=== PATIENT | female | born 1985 ===

== ENCOUNTER 2017-12-19 10:09 | Emergency (ER) | payer OTHER ==
--- NOTE | 2017-12-19 11:52 | ED PDOC ---
HPI: Abdomen Time Seen by Provider: 12/19/17 10:59 Chief Complaint (Nursing): Abdominal Pain Chief Complaint (Provider): Abdominal Pain History Per: Patient History/Exam Limitations: no limitations Onset/Duration Of Symptoms: Intermittent Episodes, Worse Since (x2 weeks) Current Symptoms Are (Timing): Still Present Additional Complaint(s): 32 year old female with medical history of hyperlipidemia, presents to the emergency department with a complaint of upper and lower abdominal pain associated with lower back pain ongoing intermittently for a "long time". Patient reported both pain are chronic issues but had worsen in the last 2 weeks. She denied any fever, chills, vomiting, diarrhea, nausea or taking any medication for relief. PMD: Tino Baez MD Past Medical History Reviewed: Historical Data, Nursing Documentation, Vital Signs Vital Signs: Last Vital Signs Temp 98.2 F 12/19/17 14:58 Pulse 61 12/19/17 14:58 Resp 18 12/19/17 14:58 BP 100/64 12/19/17 14:58 Pulse Ox 99 12/19/17 14:58 - Medical History PMH: Hyperlipidemia Denies: Chronic Kidney Disease - Surgical History Surgical History: - Family History Family History: States: Unknown Family Hx - Social History Current smoker - smoking cessation education provided: No Ex-Smoker (has not smoked in the last 12 months): No Alcohol: None Drugs: Denies - Immunization History Hx Tetanus Toxoid Vaccination: No Hx Influenza Vaccination: No Hx Pneumococcal Vaccination: No - Home Medications Home Medications: Ambulatory Orders Medication Instructions Recorded Amoxicillin 1 cap PO BID 01/16/16 oxyCODONE/Acetaminophen [Percocet 1 tab PO QID PRN #12 tab 01/16/16 5/325 mg Tab] metroNIDAZOLE [Flagyl] 500 mg PO BID #14 tab 03/02/16 Famotidine [Pepcid] 20 mg PO DAILY #14 tab 12/19/17 Nitrofurantoin Macrocrystals 100 mg PO BID #14 cap 12/19/17 [Macrobid] traMADol [Ultram] 50 mg PO TID PRN #15 tab 12/19/17 - Allergies Allergies/Adverse Reactions: Allergies Allergy/AdvReac Type Severity Reaction Status Date / Time No Known Allergies Allergy Verified 12/19/17 10:46 Review of Systems ROS Statement: Except As Marked, All Systems Reviewed And Found Negative Constitutional: Negative for: Fever, Chills Gastrointestinal: Positive for: Abdominal Pain (upper and lower). Negative for : Nausea, Vomiting, Diarrhea Musculoskeletal: Positive for: Back Pain (lower) Physical Exam - Reviewed Nursing Documentation Reviewed: Yes Vital Signs Reviewed: Yes - Physical Exam Appears: Positive for: Well, Non-toxic, No Acute Distress Head Exam: Positive for: ATRAUMATIC, NORMAL INSPECTION, NORMOCEPHALIC Skin: Positive for: Normal Color Eye Exam: Positive for: EOMI, Normal appearance, PERRL ENT: Positive for: Normal ENT Inspection, Pharynx Is (within normal limits), TM Is/Are (clear bilaterally). Negative for: Pharyngeal Erythema, Tonsillar Exudate Neck: Positive for: Normal, Supple Cardiovascular/Chest: Positive for: Regular Rate, Rhythm, Chest Non Tender Respiratory: Positive for: Normal Breath Sounds. Negative for: Decreased Breath Sounds, Wheezing, Respiratory Distress Gastrointestinal/Abdominal: Positive for: Soft, Tenderness (suprapubic; epigastric) Back: Positive for: Vertebral Tenderness (paraspinal on palpation). Negative for: L CVA Tenderness, R CVA Tenderness Extremity: Positive for: Normal ROM (upper/lower) Neurologic/Psych: Positive for: Alert (x3), Oriented - Laboratory Results Result Diagrams: 12/19/17 12:00 12/19/17 12:00 - ECG O2 Sat by Pulse Oximetry: 100 (RA) Pulse Ox Interpretation: Normal Medical Decision Making Medical Decision Making: Initial Impression: Chronic abdominal and back pain Differential Diagnosis: Gastritis; Fibroids; UTI Initial Plan: * BMP * Lipase * Urine * Urine dipstick * CBC * Pepcid 20mg IVP * Toradol 30mg IVP Time: 1449 --Labs: no significant abnormality. --Negative for . --Upon provider reevaluation, patient is feeling better, medically stable and requires no further treatment in the ED at this time. Patient will be discharged home with Rx for Pepcid 20mg, Macrobid 100mg and Ultram 50mg. Counseling was provided and all questions were answered regarding diagnosis and need for follow up with [facility] in 2-3 days. There is agreement to discharge plan. Return if symptoms persist or worsen. Clinical Impression: Back pain; Abdominal pain; Pelvis pain; Dysuria Scribe Attestation: Documented by Ciera Austin, acting as a scribe for Nhung Arroyo MD. Provider Scribe Attestation: All medical record entries made by the Scribe were at my direction and personally dictated by me. I have reviewed the chart and agree that the record accurately reflects my personal performance of the history, physical exam, medical decision making, and the department course for this patient. I have also personally directed, reviewed, and agree with the discharge instructions and disposition. Disposition - Clinical Impression Clinical Impression: Abdominal pain, Pelvic pain, Back pain, Dysuria - Patient ED Disposition Is Patient to be Admitted: No Doctor Will See Patient In The: Office Counseled Patient/Family Regarding: Studies Performed, Diagnosis - Disposition Referrals: [facility] [Outside] Disposition: Routine/Home Disposition Time: 14:49 Condition: GOOD Additional Instructions: Take your medications as instructed. Follow up with your PCP 2-3 days. Return for worsening. Prescriptions: Famotidine [Pepcid] 20 mg PO DAILY #14 tab Nitrofurantoin Macrocrystals [Macrobid] 100 mg PO BID #14 cap traMADol [Ultram] 50 mg PO TID PRN #15 tab PRN Reason: Pain, Severe (8-10) Instructions: Chronic Pelvic Pain in Women, Low Back Pain (DC), Urinary Tract Infection, Adult (DC), Chronic Pelvic Pain (DC), Stomach Ache and Stomach Upset Print Language: DJIBOUTIAN
[2017-12-19 12:19] LABS: BASO % 0.3 % (0.0-2.0); EOS # 0.1 K/uL (0.0-0.7); EOS % 1.1 % (0.0-4.0); HEMOGLOBIN 14.3 g/dL (12.0-16.0); LYMPH # 2.4 K/uL (1.0-4.3); MEAN CORPUSCULAR HEMOGLOBIN 31.3 pg (27.0-31.0); MEAN CORPUSCULAR HGB CONC 34.4 g/dL (33.0-37.0); MEAN PLATELET VOLUME 8.4 fl (7.2-11.7); MONO # 0.4 K/uL (0.0-0.8); MONO % 6.1 % (0.0-10.0); NEUT # 3.3 K/uL (1.8-7.0); NEUT % 53.5 % (50.0-75.0); NRBC % 0.1 % (0.0-0.0); RBC 4.56 Mil/uL (3.80-5.20); WHITE BLOOD COUNT 6.2 K/uL (4.8-10.8)
[2017-12-19 12:21] LABS: BLOOD UREA NITROGEN 8 mg/dl (7-17); CALCIUM 9.5 mg/dL (8.4-10.2); GFR AFRICAN-AMERICAN > 60; GFR NON-AFRICAN AMERICAN > 60; LIPASE 63 U/L (23-300)
[2017-12-19 14:59] VITALS: BP 100/64; PULSE 61; RESP 18; TEMP 98.2
[2017-12-19 15:20] VITALS: O2SAT 100
== END 2017-12-19 15:15 | disposition home or self-care (01) ==
LOC: H.ER 10:09
DX: R10.2 Pelvic and perineal pain (principal); R30.0 Dysuria; E78.5 Hyperlipidemia, unspecified
CPT/HCPCS: 80048; 81025; 83690; 85025; 96374; 96375; 99285; J1885

== ENCOUNTER 2018-02-04 18:43 | Emergency (ER) | payer SELFPAY ==
[2018-02-04 18:57] VITALS: PULSE 72; RESP 18; TEMP 98.1; O2SAT 100
[2018-02-04] MEDS ORDERED: Dexamethasone 4 mg/1 ml IM STA (19:25)
--- NOTE | 2018-02-04 19:29 | ED PDOC ---
HPI: CCC, URI, Sore Throat Time Seen by Provider: 02/04/18 19:08 Chief Complaint (Nursing): ENT Problem Chief Complaint (Provider): Throat swelling and ear pain History Per: Patient History/Exam Limitations: language barrier (translated by ba) Ear Symptoms: Bilateral: Ear Pain Additional Complaint(s): 32 year old female with sore throat and bilateral ear pain for 5 days with no fever or chills and no associated cough. Patient reports she took 2 amoxicillin tabs and Motrin for her symptoms but this did not help. Patient is tolerating liquids and solids but has pain when swallowing. No associated nausea and vomiting. PMD: [facility] Past Medical History Reviewed: Historical Data, Nursing Documentation, Vital Signs Vital Signs: Last Vital Signs Temp 98.1 F 02/04/18 18:54 Pulse 72 02/04/18 18:54 Resp 18 02/04/18 18:54 BP Pulse Ox 100 02/04/18 19:39 - Medical History PMH: Hyperlipidemia - Surgical History Surgical History: (x 2) - Family History Family History: States: No Known Family Hx - Living Arrangements Living Arrangements: With Family - Social History Current smoker - smoking cessation education provided: No Alcohol: None Drugs: Denies - Home Medications Home Medications: Ambulatory Orders Medication Instructions Recorded Amoxicillin 1 cap PO BID 01/16/16 oxyCODONE/Acetaminophen [Percocet 1 tab PO QID PRN #12 tab 01/16/16 5/325 mg Tab] metroNIDAZOLE [Flagyl] 500 mg PO BID #14 tab 03/02/16 Famotidine [Pepcid] 20 mg PO DAILY #14 tab 12/19/17 Nitrofurantoin Macrocrystals 100 mg PO BID #14 cap 12/19/17 [Macrobid] traMADol [Ultram] 50 mg PO TID PRN #15 tab 12/19/17 Amoxicillin/Clavulanate [Augmentin 1 tab PO BID #14 tab 02/04/18 875 MG-125 MG] Ibuprofen [Motrin Tab] 800 mg PO Q8 PRN #20 tab 02/04/18 - Allergies Allergies/Adverse Reactions: Allergies Allergy/AdvReac Type Severity Reaction Status Date / Time No Known Allergies Allergy Verified 02/04/18 18:54 Review of Systems ROS Statement: Except As Marked, All Systems Reviewed And Found Negative Constitutional: Negative for: Fever, Chills ENT: Positive for: Ear Pain (bilateral), Throat Pain, Throat Swelling Respiratory: Negative for: Cough Gastrointestinal: Negative for: Nausea, Vomiting Neurological: Negative for: Headache, Dizziness Physical Exam - Reviewed Nursing Documentation Reviewed: Yes Vital Signs Reviewed: Yes - Physical Exam Appears: Positive for: Well, Non-toxic Head Exam: Positive for: ATRAUMATIC, NORMOCEPHALIC Skin: Positive for: Normal Color. Negative for: Rash Eye Exam: Positive for: Normal appearance ENT: Positive for: TM Is/Are (TM's normal bilaterally, mild erythema with no edema noted to auditory canals bilaterally), Pharyngeal Erythema, Tonsillar Exudate, Tonsillar Swelling, Other (uvula midline) Cardiovascular/Chest: Positive for: Regular Rate, Rhythm Respiratory: Positive for: Normal Breath Sounds. Negative for: Wheezing, Respiratory Distress Neurologic/Psych: Positive for: Alert, Oriented - Laboratory Results Urine POC: Negative - ECG O2 Sat by Pulse Oximetry: 100 (RA) Pulse Ox Interpretation: Normal Medical Decision Making Medical Decision Making: Time: 1907 Impression: Tonsillitis Initial Plan: --Decadron Inj 8 mg IM --Motrin Tab 600 mg PO --Throat Culture Patient given prescriptions for Motrin and Augmentin. Patient was advised to drink plenty of fluids and follow up with clinic in 2-3 days. Scribe Attestation: Documented by Adriana Barros, acting as a scribe for Sarahy Yu PA-C Provider Scribe Attestation: All medical record entries made by the Scribe were at my direction and personally dictated by me. I have reviewed the chart and agree that the record accurately reflects my personal performance of the history, physical exam, medical decision making, and the department course for this patient. I have also personally directed, reviewed, and agree with the discharge instructions and disposition. Disposition - Clinical Impression Clinical Impression: Tonsillitis - Patient ED Disposition Is Patient to be Admitted: No Counseled Patient/Family Regarding: Studies Performed, Diagnosis, Need For Followup, Rx Given - Disposition Referrals: [facility] [Outside] Disposition: Routine/Home Disposition Time: 19:53 Condition: STABLE Additional Instructions: Take rx meds as directed. Drink plenty of fluids. Follow up with clinic in 2- 3 days. Prescriptions: Amoxicillin/Clavulanate [Augmentin 875 MG-125 MG] 1 tab PO BID #14 tab Ibuprofen [Motrin Tab] 800 mg PO Q8 PRN #20 tab PRN Reason: Pain, Moderate (4-7) Instructions: Sore Throat in Adults Forms: [facility] (Slovenian) Print Language: EGYPTIAN
== END 2018-02-04 20:22 | disposition home or self-care (01) ==
LOC: H.ER 18:43
DX: J03.90 Acute tonsillitis, unspecified (principal); E78.5 Hyperlipidemia, unspecified
CPT/HCPCS: 81025; 87070; 96372; 99283; J1100

== ENCOUNTER 2018-03-22 11:25 | Day surgery (SDC) | payer SELFPAY ==
[2018-03-22 12:25] VITALS: RESP 18
[2018-03-22] MEDS ORDERED: Bupivacaine HCl 0.25% PF (30 ml) Inj ONE (13:11)
[2018-03-22] MEDS ORDERED: ceFAZolin IV 2 gm in Dextrose 2 GM/50 ML BAG IVPB ONE (13:11)
[2018-03-22] MEDS ORDERED: Lidocaine 1% Inj (20ml) ONE (13:12)
[2018-03-22] MEDS ORDERED: Succinylcholine 200 mg/10 ml Inj IV ONE (13:18)
[2018-03-22] MEDS ORDERED: Midazolam 2 MG/2 ML VIAL ONE (13:18)
[2018-03-22] MEDS ORDERED: Propofol 10 mg/ml Inj (20 ML) ONE (13:18)
[2018-03-22] MEDS ORDERED: Rocuronium 10 mg/ml (5 ml) ONE (13:18)
[2018-03-22] MEDS ORDERED: Lactated Ringer's 1,000 ML IV ONE (14:00)
--- NOTE | 2018-03-22 14:59 | PCM.SURG1 ---
Surgeon's Initial Post Op Note - Surgeon's Notes Surgeon: Dr. Grier Cheese Processor: Dr. Baldwin PGY4; Dr. Valdes PGY3 Type of Anesthesia: General Endo Anesthesia Administered By: Sana Pre-Operative Diagnosis: Symptomatic Cholelithiasis Operative Findings: same Post-Operative Diagnosis: same Operation Performed: Laparoscopic Cholecystectomy Specimen/Specimens Removed: Gallbladder Estimated Blood Loss: EBL {In ML}: 5 Blood Products Given: N/A Drains Used: No Drains Post-Op Condition: Good Date of Surgery/Procedure: 03/22/18 Time of Surgery/Procedure: 15:00
--- NOTE | 2018-03-22 15:00 | CP.SDSHP ---
Same Day Surgery H & P - History Proposed Procedure: Laparoscopic cholecystectomy Pre-Op Diagnosis: symptomatic cholelithiasis - Previous Medical/Surgical History Cardiac: Other (HLD) Previous Surgical History: - Allergies Allergies: Allergies No Known Allergies Allergy (Verified 02/04/18 18:54) - Physical Exam General Appearance: NAD Vital Signs: Vital Signs 03/22/18 12:24 Temperature 97.7 F Pulse Rate 62 Respiratory 18 Rate Blood Pressure 105/58 L O2 Sat by Pulse 98 Oximetry Mental Status: Alert & Oriented x3 Neuro: WNL Heart: WNL Lungs: WNL GI: WNL - Impression Impression: 32 y/o F w/ symptomatic cholelithiasis Pt. Evaluated Today:Candidate for Anesthesia & Procedure: Yes Short Stay Discharge - Short Stay Discharge Admitting Diagnosis/Reason for Visit: K80.20 Disposition: HOME/ ROUTINE Referrals: Madison Morales MD [Primary Care Provider] - Manisha Grier MD [Staff Provider] - [facility] [Outside] Follow-up: follow up w/ Dr. Grier in clinic in 7-10 days please call to make an appointment. Instructions: Cholecystectomy, Laparoscopic Surgery Additional Instructions (Diet, Activity): advance diet as tolerated pt may experience diarrhea with fatty foods for first 1-2months which will improve Pt may shower tomorrow however do not scrub at incisions Do not soak incisions. No pools, tubs, baths, swimming remove and change outer bandaid POD#2, and as needed Leave white steristrips in place, they will fall off on their own No heavy lifting (more than 10lbs) for 3wks Take medication as prescribed Pt may take OTC pain meds PRN Call Dr. Grier/return to the ED if fever >100.4, pain, redness, drainage from incisions or suture rupture
[2018-03-22] MEDS ORDERED: HYDROmorphone 0.5 mg/0.5 ml ISec IVP PRN (15:05)
[2018-03-22] MEDS ORDERED: Lactated Ringer's 1,000 ML IV SCH (15:15)
[2018-03-22] MEDS ORDERED: Oxycodone/Acetaminophen 5/325 mg Tab PO PRN (15:21)
[2018-03-22] MEDS ORDERED: Oxycodone/Acetaminophen 5/325 mg Tab PO ONE (18:30)
[2018-03-22 18:36] VITALS: TEMP 98.2
[2018-03-22 19:27] VITALS: BP 124/69; PULSE 77; O2SAT 98
--- NOTE | 2018-03-24 08:25 | OP ---
PROCEDURE DATE: 03/22/18 PREOPERATIVE DIAGNOSIS: Symptomatic cholelithiasis. POSTOPERATIVE DIAGNOSIS: Symptomatic cholelithiasis. SURGEON: Manisha Shaffer MD DRAFTER DETAIL: Shelly De Los Santos DO; Payal Monroe DO PROCEDURE: Laparoscopic cholecystectomy. INDICATIONS: This is a 32-year-old female who was experiencing right upper quadrant abdominal pain. On workup was found to have cholelithiasis. Laparoscopic cholecystectomy was elected. DESCRIPTION OF PROCEDURE: The patient was placed on the operating table in the supine position. General anesthesia was induced. A time-out was completed verifying correct patient, procedure, site, positioning, and special equipment prior to the procedure. A nasogastric tube was placed. The abdomen was prepped and draped in the usual sterile fashion. An incision was made in a natural skin line just below the umbilicus. The fascia was elevated and the Veress needle was inserted. Proper position was confirmed by aspiration and saline meniscus test. The abdomen was then insufflated with carbon dioxide to a pressure of 15 mmHg. The patient tolerated the insufflation well. The laparoscope was inserted and the abdomen inspected. Additional trocars were then inserted in the following locations, 10-mm trocar in the right epigastrium and two 5-mm trocars along the right costal margin. The abdomen was inspected and no abnormalities were found. The table was placed in the reverse Trendelenburg position with the right side up. The dome of the gallbladder was grasped with an atraumatic grasper, passed to the lateral port and retracted over the dome of the liver. The infundibulum was then also grasped with an atraumatic grasper to the midclavicular port and retracted towards the right lower quadrant. This maneuver exposed Calot's triangle. The peritoneum overlying the gallbladder infundibulum was then incised and a cystic duct and cystic artery were identified and circumferentially dissected until the critical view was obtained. We were then able to see the cystic duct, and cystic artery with a view of the liver behind it. The cystic duct and cystic artery were then triply clipped and divided close to the gallbladder. The gallbladder was then dissected from its peritoneal attachment using electrocautery. Hemostasis was achieved and the gallbladder and contained stones were removed using an endoscopic retrieval bag placed through the subxiphoid port. The gallbladder was passed off the table as a specimen. The gallbladder fossa was then copiously irrigated with saline. Hemostasis was achieved. There was no evidence of bleeding from the gallbladder fossa or cystic artery. No leakage of bile, from the cystic duct stump. Secondary trocars were then removed. The laparoscope was withdrawn and umbilical trocar was removed. The abdomen was allowed to collapse. The fascia of the 10-mm trocar site was closed with [id number] 0-Vicryl suture. The skin was then closed with subcuticular sutures of 4-0 Monocryl and Dermabond was applied. The nasogastric tube was removed. The patient tolerated the procedure well. The patient was extubated and taken to the postanesthesia care unit in stable condition. Shelly Baldwin DO Manisha Grier M.D. SYLVIE
== END 2018-03-22 19:43 | disposition home or self-care (01) ==
LOC: H.OPSURG 11:25
PROVIDERS: ATTEND Specialist
DX: K80.20 Calculus of gallbladder without cholecystitis without obstruction (principal); M54.9 Dorsalgia, unspecified; E78.5 Hyperlipidemia, unspecified
CPT/HCPCS: 47562; 88304; J0330; J0690; J1170; J2001; J2250; J2405; J2704; J3010; J7030; J7120

== ENCOUNTER 2018-07-13 17:45 | Emergency (ER) | payer SELFPAY ==
--- NOTE | 2018-07-13 19:15 | ED PDOC ---
HPI: Back Time Seen by Provider: 07/13/18 19:02 Chief Complaint (Nursing): Back Pain Chief Complaint (Provider): Abdominal pain History Per: Patient History/Exam Limitations: no limitations Onset/Duration Of Symptoms: Days (x2) Additional Complaint(s): Patient is a 32 y/o female with history of fibroid uterus who presents to the ED complaining of lower abdominal pelvic pain x2 days with pain radiating to her back. Patient also complains of dysuria and constipation. She denies fever, vomiting, or bloody stool. Past Medical History Vital Signs: Last Vital Signs Temp 98.2 F 07/13/18 18:09 Pulse 65 07/13/18 18:09 Resp 18 07/13/18 18:09 BP 114/73 07/13/18 18:09 Pulse Ox 99 07/13/18 18:09 - Medical History PMH: Gastritis, Hypercholesterolemia, Hyperlipidemia Denies: Chronic Kidney Disease Other PMH: Fibroid uterus - Surgical History Surgical History: Cholecystectomy, (x 2) - Family History Family History: States: Unknown Family Hx - Immunization History Hx Tetanus Toxoid Vaccination: No Hx Influenza Vaccination: No Hx Pneumococcal Vaccination: No - Home Medications Home Medications: Ambulatory Orders Medication Instructions Recorded Omeprazole 20 mg PO DAILY 03/22/18 oxyCODONE/Acetaminophen [Percocet 1 tab PO Q4 PRN 03/22/18 5/325 mg Tab] Phenazopyridine [Pyridium] 200 mg PO TID PRN #5 tab 04/30/18 Acetaminophen with Codeine 1 tab PO Q8H #10 tab 07/13/18 [Tylenol with Codeine No. 3 300 mg-30 mg] Sulfamethoxazole/Trimethoprim 1 tab PO BID #20 tab 07/13/18 [Bactrim DS 800 mg-160 mg] - Allergies Allergies/Adverse Reactions: Allergies Allergy/AdvReac Type Severity Reaction Status Date / Time ibuprofen [From Motrin] Allergy RASH Verified 07/13/18 20:01 Review of Systems ROS Statement: Except As Marked, All Systems Reviewed And Found Negative Constitutional: Negative for: Fever Gastrointestinal: Positive for: Abdominal Pain, Constipation. Negative for: Vomiting, Hematochezia Genitourinary Female: Positive for: Dysuria Musculoskeletal: Positive for: Back Pain Physical Exam - Reviewed Nursing Documentation Reviewed: Yes Vital Signs Reviewed: Yes - Physical Exam Appears: Positive for: Well, Non-toxic, No Acute Distress Head Exam: Positive for: ATRAUMATIC, NORMOCEPHALIC Skin: Positive for: Normal Color, Warm, Dry Eye Exam: Positive for: EOMI, Normal appearance, PERRL Gastrointestinal/Abdominal: Positive for: Normal Exam, Soft. Negative for: Tenderness, Mass Back: Negative for: L CVA Tenderness, R CVA Tenderness Extremity: Positive for: Normal ROM. Negative for: Pedal Edema, Deformity Neurologic/Psych: Positive for: Alert, Oriented. Negative for: Motor/Sensory Deficits - Laboratory Results Result Diagrams: 07/13/18 19:37 07/13/18 19:37 - ECG O2 Sat by Pulse Oximetry: 99 (RA) Pulse Ox Interpretation: Normal Medical Decision Making Medical Decision Making: Time: 19:09 Initial Plan: CMP CBC w/ diff US Transvag ------ Scribe Attestation: Documented by Tha Mason acting as a scribe for Niels Tavarez MD Provider Scribe Attestation: All medical record entries made by the Scribe were at my direction and personally dictated by me. I have reviewed the chart and agree that the record accurately reflects my personal performance of the history, physical exam, medical decision making, and the department course for this patient. I have also personally directed, reviewed, and agree with the discharge instructions and disposition. Disposition - Clinical Impression Clinical Impression: Ovarian cyst, Fibroid, UTI (urinary tract infection) - Patient ED Disposition Is Patient to be Admitted: No Counseled Patient/Family Regarding: Studies Performed, Diagnosis, Need For Followup, Rx Given - Disposition [facility] Disposition: Routine/Home Disposition Time: 22:36 Condition: FAIR Prescriptions: Acetaminophen with Codeine [Tylenol with Codeine No. 3 300 mg-30 mg] 1 tab PO Q8H #10 tab Sulfamethoxazole/Trimethoprim [Bactrim DS 800 mg-160 mg] 1 tab PO BID #20 tab Instructions: Urinary Tract Infection, Adult (DC), Ovarian Cysts, Uterine Fibroids Forms: [facility] (Kyrgyz) Print Language: LAO
[2018-07-13 19:44] LABS: BASO % 0.5 % (0.0-2.0); EOS # 0.1 K/uL (0.0-0.7); EOS % 1.3 % (0.0-4.0); LYMPH # 2.5 K/uL (1.0-4.3); LYMPH % 39.8 % (20.0-40.0); MEAN CELL VOLUME 90.9 fl (81.0-99.0); MEAN CORPUSCULAR HEMOGLOBIN 30.8 pg (27.0-31.0); MEAN CORPUSCULAR HGB CONC 33.8 g/dL (33.0-37.0); MONO # 0.4 K/uL (0.0-0.8); MONO % 6.9 % (0.0-10.0); NEUT # 3.2 K/uL (1.8-7.0); NEUT % 51.5 % (50.0-75.0); NRBC % 0.1 % (0.0-0.0); RBC 4.22 Mil/uL (3.80-5.20); RED CELL DISTRIBUTION WIDTH 12.6 % (11.5-14.5); WHITE BLOOD COUNT 6.3 K/uL (4.8-10.8)
[2018-07-13 19:55] LABS: ALB/GLOB RATIO 1.1 (1.0-2.1)
[2018-07-13 20:04] LABS: ALT/SGPT 27 U/L (9-52); AST/SGOT 26 U/L (14-36); BLOOD UREA NITROGEN 9 mg/dl (7-17); CALCIUM 8.9 mg/dL (8.4-10.2); GFR NON-AFRICAN AMERICAN > 60
[2018-07-13 22:55] VITALS: BP 107/66; PULSE 57; RESP 16; TEMP 98.1; O2SAT 97
--- NOTE | 2018-07-14 12:47 | US ---
Date of service: 07/13/2018 HISTORY: fibroids COMPARISON: Comparison is made with the previous study dated 04/30/2018 TECHNIQUE: Transvaginal ultrasound examination of the pelvis was performed. FINDINGS: UTERUS: Measures 8.7 x 3.7 x 5.4 cm. Normal in size and appearance. There is sub centimeter slightly hypoechoic lesion in the posterior aspect of the uterine fundus likely represent small fibroid. ENDOMETRIUM: Measures 8.6 mm in diameter. Unremarkable. CERVIX: No cervical abnormality identified. RIGHT OVARY: Measures 1.6 x 1.4 x 1.9 cm. No solid mass. Normal flow. LEFT OVARY: Measures 4.2 x 4.5 x 4.1 cm. No solid mass. Normal flow. There is hypoechoic cyst at the left ovary measures 3.8 x 3.7 x 3.4 centimeter. FREE FLUID: No significant free fluid noted. OTHER FINDINGS: None. IMPRESSION: 3.8 centimeter cyst at left adnexa. Sub centimeter fibroid at the posterior aspect of the uterine fundus. Otherwise unremarkable study. Preliminary report with concordant findings was submitted to the referring physician.
== END 2018-07-13 22:55 | disposition home or self-care (01) ==
LOC: H.ER 17:45
DX: N39.0 Urinary tract infection, site not specified (principal); D25.9 Leiomyoma of uterus, unspecified; N83.209 Unspecified ovarian cyst, unspecified side; E78.00 Pure hypercholesterolemia, unspecified; Z88.6 Allergy status to analgesic agent; K59.00 Constipation, unspecified

== ENCOUNTER 2018-07-15 11:54 | Inpatient (IN) | payer SELFPAY ==
[2018-07-15] MEDS ORDERED: Sodium Chloride 0.9% 1,000 ML IV STA (12:38)
--- NOTE | 2018-07-15 12:40 | ED PDOC ---
HPI: Abdomen Time Seen by Provider: 07/15/18 12:13 Chief Complaint (Nursing): Abdominal Pain Chief Complaint (Provider): Abd pain History Per: Patient History/Exam Limitations: no limitations Onset/Duration Of Symptoms: Days (30 min) Additional Complaint(s): Pt. with abd pain epigastric. 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 No nausea, vomit, diarrhea, weakness, chest pain, dyspnea. Has suprapubic pain that is on going for a while and seen her 2 days ago for the same. Dx with fibroid and uti. On meds for it. No new food or drinks. No alcohol. No drugs. Past Medical History Reviewed: Historical Data, Nursing Documentation, Vital Signs Vital Signs: Last Vital Signs Temp 97.8 F 07/15/18 12:02 Pulse 63 07/15/18 12:02 Resp 18 07/15/18 12:02 BP 111/73 07/15/18 12:02 Pulse Ox 100 07/15/18 12:02 - Medical History PMH: Gastritis, Hypercholesterolemia, Hyperlipidemia Denies: Chronic Kidney Disease - Surgical History Surgical History: Cholecystectomy, (x 2) - Family History Family History: States: Unknown Family Hx - Living Arrangements Living Arrangements: With Family - Immunization History Hx Tetanus Toxoid Vaccination: No Hx Influenza Vaccination: No Hx Pneumococcal Vaccination: No - Home Medications Home Medications: Ambulatory Orders Medication Instructions Recorded Acetaminophen with Codeine 1 tab PO Q8H #10 tab 07/13/18 [Tylenol with Codeine No. 3 300 mg-30 mg] Sulfamethoxazole/Trimethoprim 1 tab PO BID #20 tab 07/13/18 [Bactrim DS 800 mg-160 mg] - Allergies Allergies/Adverse Reactions: Allergies Allergy/AdvReac Type Severity Reaction Status Date / Time ibuprofen [From Motrin] Allergy RASH Verified 07/15/18 12:01 Review of Systems ROS Statement: Except As Marked, All Systems Reviewed And Found Negative Gastrointestinal: Positive for: Abdominal Pain Physical Exam - Reviewed Nursing Documentation Reviewed: Yes Vital Signs Reviewed: Yes - Physical Exam Appears: Positive for: Non-toxic, No Acute Distress Head Exam: Positive for: ATRAUMATIC, NORMAL INSPECTION, NORMOCEPHALIC Skin: Positive for: Normal Color, Warm, DRY Eye Exam: Positive for: EOMI, Normal appearance, PERRL ENT: Positive for: Normal ENT Inspection Neck: Positive for: Normal, Painless ROM Cardiovascular/Chest: Positive for: Regular Rate, Rhythm Respiratory: Positive for: CNT, Normal Breath Sounds Gastrointestinal/Abdominal: Positive for: Soft, Tenderness (epigastric mild). Negative for: Distended, Guarding, Rebound Back: Positive for: Normal Inspection. Negative for: L CVA Tenderness, R CVA Tenderness Extremity: Positive for: Normal ROM. Negative for: Tenderness, Pedal Edema Neurologic/Psych: Positive for: Alert, Oriented - Laboratory Results Result Diagrams: 07/15/18 12:51 07/15/18 12:51 Interpretation Of Abn Labs: 3340 lipase - ECG O2 Sat by Pulse Oximetry: 100 Pulse Ox Interpretation: Normal - Progress ED Course And Treament: 1346: Continues to have pain. Will ct abd/pelvis. 1410: Spoke with Dr. Beyer. Will admit medsurg. AAOx3. Pain controlled. Disposition - Clinical Impression Clinical Impression: Pancreatitis - Patient ED Disposition Is Patient to be Admitted: Yes Counseled Patient/Family Regarding: Studies Performed, Diagnosis - Disposition Disposition Time: 14:11 Condition: FAIR - Pt Status Changed To: Hospital Disposition Of: Inpatient - Admit Certification Admit to Inpatient:: After my assessment, the patient will require hospitalization for at least two midnights. This is because of the severity of symptoms shown, intensity of services needed, and/or the medical risk in this patient being treated as an outpatient. - POA Present On Arrival: None
[2018-07-15 12:54] LABS: BASO % 0.3 % (0.0-2.0); EOS # 0.1 K/uL (0.0-0.7); HEMOGLOBIN 13.7 g/dL (12.0-16.0); LYMPH % 20.9 % (20.0-40.0); MEAN CELL VOLUME 89.4 fl (81.0-99.0); MEAN CORPUSCULAR HEMOGLOBIN 31.5 pg (27.0-31.0); MEAN CORPUSCULAR HGB CONC 35.2 g/dL (33.0-37.0); MEAN PLATELET VOLUME 8.2 fl (7.2-11.7); MONO # 0.6 K/uL (0.0-0.8); MONO % 6.6 % (0.0-10.0); NEUT # 6.6 K/uL (1.8-7.0); NEUT % 71.2 % (50.0-75.0); NRBC % 0.1 % (0.0-0.0); RBC 4.36 Mil/uL (3.80-5.20); RED CELL DISTRIBUTION WIDTH 12.8 % (11.5-14.5); WHITE BLOOD COUNT 9.3 K/uL (4.8-10.8)
[2018-07-15 13:30] LABS: ALB/GLOB RATIO 1.1 (1.0-2.1); ALBUMIN 3.9 g/dL (3.5-5.0); ALT/SGPT 37 U/L (9-52); AST/SGOT 55 U/L (14-36); BLOOD UREA NITROGEN 9 mg/dl (7-17); GFR NON-AFRICAN AMERICAN > 60
[2018-07-15 13:43] LABS: LIPASE 3340 U/L (23-300)
[2018-07-15] MEDS ORDERED: Iohexol 240 (50 ml) PO ONE (13:47)
[2018-07-15] MEDS ORDERED: Lactated Ringer's 1,000 ML IV SCH (14:00)
--- NOTE | 2018-07-15 14:43 | CP.PCM.HP ---
<Deanna Cali - Last Filed: 07/15/18 15:20> History of Present Illness - History of Present Illness History of Present Illness: 33 yo F with history of uterine fibroids presented to ED with 10/10 sharp epigastric abdominal pain radiating to the back. Pain started around 11 am today, about 30 min prior to arrival in ED. No vomiting, no nausea, no diarrhea, no weakness, no chest pain. She also complaints of chronic suprapubic pain and states that she has had irritation with urination for many years. Was seen in ED for suprapubic pain 2 days ago, was prescribed bactrim and tylenol #3. In ED: Vitals signs stable, afebrile No leukocytosis Lipase 3340 Elevated AST to 55 Currently, CT abd/pelvis w/ PO and IV contrast pending. Review of EMR showed lipase level without prior elevations. Past Med hx: uterine fibroids, cholelithiasis Past Surg hx: in 2011, cholecystectomy in March 2018 (done as scheduled same day surgery procedure) Social hx: denies smoking, alcohol use at all, drug use Family hx: hypertension (both parents) Medications: currently bactrim and tylenol 3 as prescribed at ED visit on 07/13/18; otherwise no chronic medications Allergies: ibuprofen (rash, itchy) Present on Admission - Present on Admission Any Indicators Present on Admission: No Review of Systems - Review of Systems All systems: reviewed and no additional remarkable complaints except - Cardiovascular Cardiovascular: absent: Chest Pain - Respiratory Respiratory: absent: Cough - Gastrointestinal Gastrointestinal: Abdominal Pain. absent: Nausea, Vomiting - Genitourinary Genitourinary: Dysuria (chronic) Past Patient History - Infectious Disease Hx of Infectious Diseases: None - Past Medical History & Family History Past Medical History?: Yes - Past Social History Smoking Status: Never Smoked Alcohol: None Drugs: Denies - PULMONARY Hx Respiratory Disorders: No - NEUROLOGICAL Hx Neurological Disorder: No - HEENT Hx HEENT Problems: No - RENAL Hx Chronic Kidney Disease: No - ENDOCRINE/METABOLIC Hx Endocrine Disorders: No - HEMATOLOGICAL/ONCOLOGICAL Hx Blood Disorders: No - INTEGUMENTARY Hx Dermatological Problems: No - MUSCULOSKELETAL/RHEUMATOLOGICAL Hx Musculoskeletal Disorders: No - GASTROINTESTINAL Hx Gall Bladder Disease: Yes (s/p cholecystectomy March 2018) Hx Gastritis: Yes - GENITOURINARY/GYNECOLOGICAL Hx Urinary Tract Infection: Yes (2014) - PSYCHIATRIC Hx Emotional Abuse: No Hx Physical Abuse: No Hx Substance Use: No - SURGICAL HISTORY Hx Cholecystectomy: Yes (03/2018) - ANESTHESIA Hx Anesthesia: Yes Hx Anesthesia Reactions: No Hx Malignant Hyperthermia: No Meds Allergies/Adverse Reactions: Allergies Allergy/AdvReac Type Severity Reaction Status Date / Time ibuprofen [From Motrin] Allergy RASH Verified 07/15/18 12:01 Physical Exam - Constitutional Additional comments: uncomfortable - Head Exam Head Exam: ATRAUMATIC, NORMAL INSPECTION, NORMOCEPHALIC - Eye Exam Eye Exam: Normal appearance. absent: Scleral icterus - ENT Exam ENT Exam: Mucous Membranes Moist - Respiratory Exam Respiratory Exam: Clear to Auscultation Bilateral, NORMAL BREATHING PATTERN. absent: Respiratory Distress - Cardiovascular Exam Cardiovascular Exam: REGULAR RHYTHM, +S1, +S2 - GI/Abdominal Exam GI & Abdominal Exam: Normal Bowel Sounds, Tenderness (epigastric) - Extremities Exam Extremities exam: Positive for: normal inspection. Negative for: calf tenderness, pedal edema - Neurological Exam Neurological exam: Alert, Oriented x3 - Skin Skin Exam: Dry, Normal Color, Warm Results - Vital Signs Recent Vital Signs: Last Vital Signs Temp 97.8 F 07/15/18 12:02 Pulse 63 07/15/18 12:02 Resp 18 07/15/18 12:02 BP 111/73 07/15/18 12:02 Pulse Ox 100 07/15/18 14:11 - Labs Result Diagrams: 07/15/18 12:51 07/15/18 12:51 Labs: Laboratory Results - last 24 hr 07/15/18 07/15/18 12:51 12:51 WBC 9.3 RBC 4.36 Hgb 13.7 Hct 38.9 MCV 89.4 MCH 31.5 H MCHC 35.2 RDW 12.8 Plt Count 260 MPV 8.2 Neut % (Auto) 71.2 Lymph % (Auto) 20.9 Nicholas % (Auto) 6.6 Eos % (Auto) 1.0 Baso % (Auto) 0.3 Neut # (Auto) 6.6 Lymph # (Auto) 2.0 Nicholas # (Auto) 0.6 Eos # (Auto) 0.1 Baso # (Auto) 0.0 Sodium 136 Potassium 3.6 Chloride 103 Carbon Dioxide 21 L Anion Gap 16 BUN 9 Creatinine 0.4 L Est GFR ( Amer) > 60 Est GFR (Non-Af Amer) > 60 Random Glucose 101 Calcium 9.0 Total Bilirubin 0.5 AST 55 H D ALT 37 Alkaline Phosphatase 87 Total Protein 7.6 Albumin 3.9 Globulin 3.6 Albumin/Globulin Ratio 1.1 Lipase 3340 H Assessment & Plan - Assessment and Plan (Free Text) Assessment: 33 yo F with history uterine fibroids, cholecystectomy in March 2018, admitted to med-surg due to episode of acute pancreatitis; elevated lipase at 3340. Plan: Acute pancreatitis - Admit to med-surg - Continue IV hydration with LR - Pain control w/ morphine - F/u abd/pelvis CT - F/u lipid panel - CBC, CMP Diet - NPO GI prophylaxis - Protonix DVT prophylaxis - Lovenox <Abiel Beyernino D - Last Filed: 07/15/18 15:40> Results - Vital Signs Recent Vital Signs: Last Vital Signs Temp 97.5 F L 07/15/18 15:29 Pulse 62 07/15/18 15:29 Resp 19 07/15/18 15:29 BP 106/66 07/15/18 15:29 Pulse Ox 98 07/15/18 15:29 - Labs Result Diagrams: 07/15/18 12:51 07/15/18 12:51 Labs: Laboratory Results - last 24 hr 07/15/18 07/15/18 12:51 12:51 WBC 9.3 RBC 4.36 Hgb 13.7 Hct 38.9 MCV 89.4 MCH 31.5 H MCHC 35.2 RDW 12.8 Plt Count 260 MPV 8.2 Neut % (Auto) 71.2 Lymph % (Auto) 20.9 Nicholas % (Auto) 6.6 Eos % (Auto) 1.0 Baso % (Auto) 0.3 Neut # (Auto) 6.6 Lymph # (Auto) 2.0 Nicholas # (Auto) 0.6 Eos # (Auto) 0.1 Baso # (Auto) 0.0 Sodium 136 Potassium 3.6 Chloride 103 Carbon Dioxide 21 L Anion Gap 16 BUN 9 Creatinine 0.4 L Est GFR ( Amer) > 60 Est GFR (Non-Af Amer) > 60 Random Glucose 101 Calcium 9.0 Total Bilirubin 0.5 AST 55 H D ALT 37 Alkaline Phosphatase 87 Total Protein 7.6 Albumin 3.9 Globulin 3.6 Albumin/Globulin Ratio 1.1 Lipase 3340 H Attending/Attestation - Attestation I have personally seen and examined this patient.: Yes I have fully participated in the care of the patient.: Yes I have reviewed all pertinent clinical information: Yes Notes (Text): 07/15/18 15:39 Patient seen and examined with resident. Case discussed and agreed with assessment and plan of management.
--- NOTE | 2018-07-15 14:45 | RAD ---
Date of service: 07/15/2018 HISTORY: epigastric pain COMPARISON: No prior. FINDINGS: LUNGS: No active pulmonary disease. PLEURA: No significant pleural effusion identified, no pneumothorax apparent. CARDIOVASCULAR: No aortic atherosclerotic calcification present. Normal cardiac size. No pulmonary vascular congestion. OSSEOUS STRUCTURES: No significant abnormalities. VISUALIZED UPPER ABDOMEN: Normal. OTHER FINDINGS: None. IMPRESSION: No active disease.
[2018-07-15 15:45] LABS: SQUAMOUS EPITHIAL 1 /hpf (0-5); URINE BACTERIA RARE (<OCC); URINE BILIRUBIN NEGATIVE (NEGATIVE); URINE BLOOD NEGATIVE (NEGATIVE); URINE CLARITY SLIGHTY-CLOUDY (Clear); URINE COLOR YELLOW (YELLOW); URINE GLUCOSE (UA) NEG (Normal); URINE LEUKOCYTE ESTERASE NEG Leu/uL (Negative); URINE PROTEIN NEGATIVE (NEGATIVE); URINE UROBILINOGEN 0.2-1.0 mg/dL (0.2-1.0)
[2018-07-15] MEDS ORDERED: Iohexol 300 100 ML IJ ONE (16:00)
[2018-07-15] MEDS ORDERED: Sodium Chloride 0.9% 50 ML IV ONE (16:00)
--- NOTE | 2018-07-15 19:27 | CT ---
Date of service: 07/15/2018 PROCEDURE: CT Abdomen and Pelvis with contrast HISTORY: abd pain COMPARISON: None. TECHNIQUE: Contrast dose: Radiation dose: Total exam DLP = 461.86 mGy-cm. This CT exam was performed using one or more of the following dose reduction techniques: Automated exposure control, adjustment of the mA and/or kV according to patient size, and/or use of iterative reconstruction technique. FINDINGS: LOWER THORAX: Unremarkable. LIVER: Unremarkable. No gross lesion or ductal dilatation. GALLBLADDER AND BILE DUCTS: Cholecystectomy. PANCREAS: Unremarkable. No gross lesion or ductal dilatation. SPLEEN: Unremarkable. ADRENALS: Unremarkable. No mass. KIDNEYS AND URETERS: Unremarkable. No hydronephrosis. No solid mass. VASCULATURE: Unremarkable. No aortic aneurysm. No aortic atherosclerotic calcification or mural plaque present. BOWEL: Unremarkable. No obstruction. No gross mural thickening. APPENDIX: Normal appendix. PERITONEUM: Unremarkable. No free fluid. No free air. LYMPH NODES: Unremarkable. No enlarged lymph nodes. BLADDER: Unremarkable. REPRODUCTIVE: 4.5 centimeters simple left ovarian cyst. BONES: No acute fracture. OTHER FINDINGS: None. IMPRESSION: 4.5 centimeter simple left ovarian cyst. Status post cholecystectomy
[2018-07-15] MEDS: Lactated Ringer's 1,000 ML IV SCH (21:55)
[2018-07-15] MEDS ORDERED: Influenza Vaccine (5 YR UP)/PF 60 MCG/0.5 ML SYR IM ONE (22:00)
[2018-07-16] MEDS: Lactated Ringer's 1,000 ML IV SCH ×3 (01:13→07:05)
[2018-07-16 01:34] VITALS: RESP 19
[2018-07-16 07:35] LABS: BASO % 0.4 % (0.0-2.0); EOS # 0.1 K/uL (0.0-0.7); EOS % 2.1 % (0.0-4.0); HEMOGLOBIN 13.1 g/dL (12.0-16.0); LYMPH # 1.7 K/uL (1.0-4.3); LYMPH % 32.1 % (20.0-40.0); MEAN CELL VOLUME 90.7 fl (81.0-99.0); MEAN CORPUSCULAR HEMOGLOBIN 31.1 pg (27.0-31.0); MEAN CORPUSCULAR HGB CONC 34.2 g/dL (33.0-37.0); MEAN PLATELET VOLUME 8.7 fl (7.2-11.7); MONO # 0.4 K/uL (0.0-0.8); MONO % 8.2 % (0.0-10.0); NEUT % 57.2 % (50.0-75.0); NRBC % 0.1 % (0.0-0.0); RBC 4.22 Mil/uL (3.80-5.20); RED CELL DISTRIBUTION WIDTH 12.9 % (11.5-14.5); WHITE BLOOD COUNT 5.2 K/uL (4.8-10.8)
[2018-07-16 07:38] LABS: BLOOD UREA NITROGEN 5 mg/dl (7-17); CALCIUM 8.8 mg/dL (8.4-10.2); GFR NON-AFRICAN AMERICAN > 60
[2018-07-16 07:46] LABS: HDL CHOLESTEROL 31 MG/DL (30-70); LDL CHOLESTEROL 129 mg/dL (0-129)
--- NOTE | 2018-07-16 09:37 | CP.PCM.PN ---
Subjective - Date & Time of Evaluation Date of Evaluation: 07/16/18 Time of Evaluation: 09:36 - Subjective Subjective: pt seen and evaluated at bedside this morning, no acute events overnight. Afebrile, laying in bed comfortably, NAD. IV LR running at 150mls/hr. Pt reports improvement in epigastric pain overnight, but is reporting mild suprapubic/LLQ pain associated with increased frequency and urgency. Denies headaches, changes in vision, CP/SOB/Palpiation, N/V/D/C, leg pain. Objective - Vital Signs/Intake and Output Vital Signs (last 24 hours): Temp Pulse Resp BP Pulse Ox 98.2 F 61 19 108/70 99 07/16/18 07:59 07/16/18 07:59 07/16/18 07:59 07/16/18 07:59 07/16/18 07:59 - Medications Medications: Current Medications Lactated Ringer's (Lactated Ringer's) 1,000 mls @ 150 mls/hr IV .Q6H40M [facility] Last Admin: 07/16/18 07:05 Dose: 150 mls/hr Morphine Sulfate (Morphine) 2 mg IVP Q4 PRN PRN Reason: Pain, moderate (4-7) Last Admin: 07/16/18 07:11 Dose: 2 mg Ondansetron HCl (Zofran Inj) 4 mg IVP Q6 PRN PRN Reason: Nausea/Vomiting Last Admin: 07/16/18 07:14 Dose: 4 mg Pantoprazole Sodium (Protonix Inj) 40 mg IVP DAILY [facility] Last Admin: 07/16/18 08:26 Dose: 40 mg Tramadol HCl (Ultram) 50 mg PO Q6 PRN PRN Reason: Pain, moderate (4-7) Last Admin: 07/16/18 08:23 Dose: 50 mg - Labs Labs: 07/16/18 05:30 07/16/18 05:30 - Constitutional Appears: Non-toxic, No Acute Distress - Head Exam Head Exam: ATRAUMATIC - Eye Exam Eye Exam: EOMI. absent: Scleral icterus Pupil Exam: PERRL - ENT Exam ENT Exam: Mucous Membranes Moist - Neck Exam Neck Exam: absent: Lymphadenopathy - Respiratory Exam Respiratory Exam: Clear to Ausculation Bilateral, NORMAL BREATHING PATTERN. absent: Rales, Rhonchi, Wheezes - Cardiovascular Exam Cardiovascular Exam: REGULAR RHYTHM, RRR, +S1, +S2. absent: JVD, Rubs, Murmur - GI/Abdominal Exam GI & Abdominal Exam: Soft, Tenderness (LLQ/Suprapubic region ), Normal Bowel Sounds. absent: Distended, Firm, Guarding, Rigid, Rebound - Extremities Exam Extremities Exam: Normal Inspection. absent: Calf Tenderness, Pedal Edema, Tenderness - Back Exam Back Exam: NORMAL INSPECTION. absent: CVA tenderness (L), CVA tenderness (R) - Neurological Exam Neurological Exam: Alert, Awake, CN II-XII Intact, Oriented x3 Assessment and Plan - Assessment and Plan (Free Text) Assessment: 33 y/o female admitted for drug induced acute pancreatitis. Plan: 1) Drug- Induced Acute Pancreatitis -likely sulfonamide induced as pt was on course of Bactrim for UTI -Continue IV hydration with LR 150 mls/hr -ABD/Pelvis CT: unremarkable pancreatic evaluation, left ovarian cyst, cholecystecomy, no bile duct dilation -Pain control w/ morphine/ultram -advance diet as tolerated -lipid panel: WNL, TG 89 -repeat lipase: 72, (>3000 on admission) -nausea control with zofran PRN 2) Urinary Tract Infection -pt did not finish course of Bactrim as prescribed -1gm rocephin once -TV/CT imaging reviewed, imaging remarkable for fibroids and left ovarian cyst 3) Diet -NPO 4) DVT prophylaxis -Lovenox 40mg SC QD
--- NOTE | 2018-07-16 17:20 | CP.PCM.DIS ---
Provider - Provider Date of Admission: 07/15/18 14:11 Attending physician: Gabriel Beyer MD Time Spent in preparation of Discharge (in minutes): 30 Diagnosis - Discharge Diagnosis (1) Acute pancreatitis Status: Acute Hospital Course - Lab Results Lab Results: Most Recent Lab Values WBC 5.2 K/uL (4.8-10.8) 07/16/18 05:30 RBC 4.22 Mil/uL (3.80-5.20) 07/16/18 05:30 Hgb 13.1 g/dL (12.0-16.0) 07/16/18 05:30 Hct 38.2 % (34.0-47.0) 07/16/18 05:30 MCV 90.7 fl (81.0-99.0) 07/16/18 05:30 MCH 31.1 pg (27.0-31.0) H 07/16/18 05:30 MCHC 34.2 g/dL (33.0-37.0) 07/16/18 05:30 RDW 12.9 % (11.5-14.5) 07/16/18 05:30 Plt Count 265 K/uL (130-400) 07/16/18 05:30 MPV 8.7 fl (7.2-11.7) 07/16/18 05:30 Neut % (Auto) 57.2 % (50.0-75.0) 07/16/18 05:30 Lymph % (Auto) 32.1 % (20.0-40.0) 07/16/18 05:30 Jerome % (Auto) 8.2 % (0.0-10.0) 07/16/18 05:30 Eos % (Auto) 2.1 % (0.0-4.0) 07/16/18 05:30 Baso % (Auto) 0.4 % (0.0-2.0) 07/16/18 05:30 Neut # (Auto) 3.0 K/uL (1.8-7.0) 07/16/18 05:30 Lymph # (Auto) 1.7 K/uL (1.0-4.3) 07/16/18 05:30 Jerome # (Auto) 0.4 K/uL (0.0-0.8) 07/16/18 05:30 Eos # (Auto) 0.1 K/uL (0.0-0.7) 07/16/18 05:30 Baso # (Auto) 0.0 K/uL (0.0-0.2) 07/16/18 05:30 Sodium 140 mmol/l (132-148) 07/16/18 05:30 Potassium 4.0 MMOL/L (3.6-5.0) 07/16/18 05:30 Chloride 106 mmol/L (98-107) 07/16/18 05:30 Carbon Dioxide 26 mmol/L (22-30) 07/16/18 05:30 Anion Gap 12 (10-20) 07/16/18 05:30 BUN 5 mg/dl (7-17) L 07/16/18 05:30 Creatinine 0.5 mg/dl (0.7-1.2) L 07/16/18 05:30 Est GFR ( Amer) > 60 07/16/18 05:30 Est GFR (Non-Af Amer) > 60 07/16/18 05:30 Random Glucose 88 mg/dL (65-105) 07/16/18 05:30 Calcium 8.8 mg/dL (8.4-10.2) 07/16/18 05:30 Total Bilirubin 0.5 mg/dl (0.2-1.3) 07/15/18 12:51 AST 55 U/L (14-36) H D 07/15/18 12:51 ALT 37 U/L (9-52) 07/15/18 12:51 Alkaline Phosphatase 87 U/L (38-126) 07/15/18 12:51 Total Protein 7.6 G/DL (6.3-8.2) 07/15/18 12:51 Albumin 3.9 g/dL (3.5-5.0) 07/15/18 12:51 Globulin 3.6 gm/dL (2.2-3.9) 07/15/18 12:51 Albumin/Globulin Ratio 1.1 (1.0-2.1) 07/15/18 12:51 Triglycerides 89 mg/DL (0-149) 07/15/18 18:14 Cholesterol 164 mg/dL (0-199) 07/15/18 18:14 LDL Cholesterol Direct 129 mg/dL (0-129) 07/15/18 18:14 HDL Cholesterol 31 MG/DL (30-70) 07/15/18 18:14 Lipase 72 U/L (23-300) 07/16/18 08:00 Urine Color Yellow (YELLOW) 07/15/18 15:33 Urine Clarity Slighty-cloudy (Clear) 07/15/18 15:33 Urine pH 7.0 (5.0-8.0) 07/15/18 15:33 Ur Specific Beverly 1.013 (1.003-1.030) 07/15/18 15:33 Urine Protein Negative mg/dL (NEGATIVE) 07/15/18 15:33 Urine Glucose (UA) Neg mg/dL (Normal) 07/15/18 15:33 Urine Ketones Negative mg/dL (NEGATIVE) 07/15/18 15:33 Urine Blood Negative (NEGATIVE) 07/15/18 15:33 Urine Nitrate Negative (NEGATIVE) 07/15/18 15:33 Urine Bilirubin Negative (NEGATIVE) 07/15/18 15:33 Urine Urobilinogen 0.2-1.0 mg/dL (0.2-1.0) 07/15/18 15:33 Ur Leukocyte Esterase Neg David/uL (Negative) 07/15/18 15:33 Urine RBC (Auto) 1 /hpf (0-3) 07/15/18 15:33 Urine Microscopic WBC 1 /hpf (0-5) 07/15/18 15:33 Ur Squamous Epith Cells 1 /hpf (0-5) 07/15/18 15:33 Urine Bacteria Rare (<OCC) 07/15/18 15:33 - Hospital Course Hospital Course: 33 y/o female with no significant medical history, whom was recently started on Bactrim for UTI was admitted for acute pancreatitis. Pt was NPO and treated with IV fluids. Pts pain resolved, diet was advanced and she tolerated without issue. Pt was given rocephin 1 dose for UTI. After an uneventful hospital stay, pt was discharged in stable condition. Discharge Exam - Head Exam Head Exam: ATRAUMATIC - Eye Exam Eye Exam: EOMI, PERRL Pupil Exam: NORMAL ACCOMODATION - Respiratory Exam Respiratory Exam: Clear to PA & Lateral, NORMAL BREATHING PATTERN, UNREMARKABLE - Cardiovascular Exam Cardiovascular Exam: REGULAR RHYTHM, RRR, +S1, +S2. absent: Gallop, JVD, Rubs, Systolic Murmur - GI/Abdominal Exam GI & Abdominal Exam: Normal Bowel Sounds, Soft, Unremarkable. absent: Hyperactive Bowel Sounds, Pulsatile Mass, Rebound, Rigid, Tenderness - Extremities Exam Extremities exam: normal capillary refill, normal inspection, pedal pulses present - Neurological Exam Neurological exam: Alert, CN II-XII Intact, Normal Gait, Oriented x3 - Psychiatric Exam Psychiatric exam: Normal Affect, Normal Mood - Skin Skin Exam: Dry, Intact, Normal Color, Warm Discharge Plan - Follow Up Plan Condition: STABLE Disposition: HOME/ ROUTINE Instructions: Acute Abdominal Pain (DC), Acute Abdominal Pain (GEN) Additional Instructions: follow up with your PMD within 1 week advance diet as tolerated any return of symptoms please come back to the ER for further evaluation and treatment Referrals: [facility] [place] [Outside]
[2018-07-16] MEDS ORDERED: Influenza Vaccine (5 YR UP)/PF 60 MCG/0.5 ML SYR IM ONE (17:27)
[2018-07-16 17:37] VITALS: BP 115/71; PULSE 56; TEMP 98.1; O2SAT 97
== END 2018-07-16 18:20 | disposition home or self-care (01) | DRG 204 ==
LOC: H.ER 11:54 → H.ERHOLD 14:11 → H.MEDSURG1 16:50
DX: K85.30 Drug induced acute pancreatitis without necrosis or infection (principal); N39.0 Urinary tract infection, site not specified; Z87.440 Personal history of urinary (tract) infections; Z90.49 Acquired absence of other specified parts of digestive tract; D25.9 Leiomyoma of uterus, unspecified; K29.70 Gastritis, unspecified, without bleeding; R74.8 Abnormal levels of other serum enzymes; R74.0 Nonspecific elevation of levels of transaminase and lactic acid dehydrogenase [LDH]; E78.00 Pure hypercholesterolemia, unspecified; E78.5 Hyperlipidemia, unspecified; Z82.49 Family history of ischemic heart disease and other diseases of the circulatory system; T37.0X5A Adverse effect of sulfonamides, initial encounter; Y92.9 Unspecified place or not applicable; Z88.6 Allergy status to analgesic agent; Z23 Encounter for immunization

== ENCOUNTER 2018-07-18 18:46 | Emergency (ER) | payer SELFPAY ==
[2018-07-18 19:26] VITALS: O2SAT 99
[2018-07-18 20:43] LABS: SQUAMOUS EPITHIAL 2 /hpf (0-5); URINE BACTERIA RARE (<OCC); URINE BILIRUBIN NEGATIVE (NEGATIVE); URINE BLOOD NEGATIVE (NEGATIVE); URINE CLARITY CLEAR (Clear); URINE COLOR STRAW (YELLOW); URINE GLUCOSE (UA) NEG (Normal); URINE LEUKOCYTE ESTERASE NEG Leu/uL (Negative); URINE PROTEIN NEGATIVE (NEGATIVE); URINE UROBILINOGEN 0.2-1.0 mg/dL (0.2-1.0)
--- NOTE | 2018-07-18 21:23 | ED PDOC ---
HPI: Abdomen Time Seen by Provider: 07/18/18 19:10 Chief Complaint (Nursing): Abdominal Pain Chief Complaint (Provider): Abdominal Pain History Per: Patient History/Exam Limitations: no limitations Onset/Duration Of Symptoms: Days (few) Associated Symptoms: Constipation Additional Complaint(s): 33 y/o female with with history of chronic UTI presents to the ED complaining of constipation for the past few days. Patient reports that she was recently admitted (07/16) for Pancreatitis that she developed as a result of the bactrim that was used to treat her UTI. Patient states that when she goes to the bathroom she has difficulty and feels like she can't get everything out. Patient's last stool was this morning but again, she felt as though she couldn't empty completely. She denies fever, vomiting, diarrhea, or any other symptoms. Past Medical History Reviewed: Historical Data, Nursing Documentation, Vital Signs Vital Signs: Last Vital Signs Temp 98.2 F 07/18/18 19:22 Pulse 58 L 07/18/18 19:22 Resp 18 07/18/18 19:22 BP 126/79 07/18/18 19:22 Pulse Ox 99 07/18/18 19:22 - Medical History PMH: Gastritis, Gall Bladder Disease (s/p cholecystectomy March 2018), Hypercholesterolemia, Hyperlipidemia Denies: Chronic Kidney Disease Other PMH: Chronic UTI - Surgical History Surgical History: Cholecystectomy (03/2018), (x 2) - Family History Family History: States: Unknown Family Hx - Social History Current smoker - smoking cessation education provided: No Alcohol: None Drugs: Denies - Immunization History Hx Tetanus Toxoid Vaccination: No Hx Influenza Vaccination: No Hx Pneumococcal Vaccination: No - Home Medications Home Medications: Ambulatory Orders Medication Instructions Recorded Docusate Sodium [Colace] 100 mg PO BID PRN #20 capsule 07/19/18 - Allergies Allergies/Adverse Reactions: Allergies Allergy/AdvReac Type Severity Reaction Status Date / Time ibuprofen [From Motrin] Allergy RASH Verified 07/18/18 19:21 sulfamethoxazole Allergy RASH Verified 07/18/18 19:21 [From Bactrim] trimethoprim [From Bactrim] Allergy RASH Verified 07/18/18 19:21 Review of Systems ROS Statement: Except As Marked, All Systems Reviewed And Found Negative Constitutional: Negative for: Fever Gastrointestinal: Positive for: Abdominal Pain, Constipation. Negative for: Vomiting, Diarrhea Physical Exam - Reviewed Nursing Documentation Reviewed: Yes Vital Signs Reviewed: Yes - Physical Exam Appears: Positive for: Well, Non-toxic, No Acute Distress Head Exam: Positive for: ATRAUMATIC, NORMOCEPHALIC Skin: Positive for: Normal Color, Warm, Dry Eye Exam: Positive for: EOMI, Normal appearance, PERRL ENT: Positive for: Normal ENT Inspection Neck: Positive for: Normal Cardiovascular/Chest: Positive for: Regular Rate, Rhythm. Negative for: Murmur Respiratory: Positive for: Normal Breath Sounds. Negative for: Respiratory Distress Gastrointestinal/Abdominal: Positive for: Normal Exam, Soft. Negative for: Tenderness Back: Positive for: Normal Inspection Extremity: Positive for: Normal ROM. Negative for: Pedal Edema, Deformity Neurologic/Psych: Positive for: Alert, Oriented. Negative for: Motor/Sensory D eficits - ECG O2 Sat by Pulse Oximetry: 99 (RA) Pulse Ox Interpretation: Normal Medical Decision Making Medical Decision Making: Time: 20:25 Initial Impression: Constipation Initial Plan: * Lactulose * Urine C&S * UA Patient had a very large bowel movement . She feels better and her urine was negative for infection isntructed her to follow up with pcp. Scribe Attestation: Documented by Tha Mason acting as a scribe for Adelfo Rich MD. Provider Scribe Attestation: All medical record entries made by the Scribe were at my direction and personally dictated by me. I have reviewed the chart and agree that the record accurately reflects my personal performance of the history, physical exam, medical decision making, and the department course for this patient. I have also personally directed, reviewed, and agree with the discharge instructions and disposition. Disposition - Clinical Impression Clinical Impression: Constipation - Patient ED Disposition Is Patient to be Admitted: No Counseled Patient/Family Regarding: Studies Performed, Diagnosis, Need For Followup - Disposition Referrals: [facility] [Outside] [facility] [Outside] Disposition: Routine/Home Disposition Time: 00:23 Condition: IMPROVED Additional Instructions: follow up with clinic in 1-2 days return to the ED with any worsening or concerning symptoms Prescriptions: Docusate Sodium [Colace] 100 mg PO BID PRN #20 capsule PRN Reason: Constipation Instructions: Constipation, Adult (DC) Forms: New Body MD (Libyan)
[2018-07-19 02:09] VITALS: BP 146/61; PULSE 57; RESP 14; TEMP 97.8
== END 2018-07-19 01:55 | disposition home or self-care (01) ==
LOC: H.ER 18:46
DX: K59.00 Constipation, unspecified (principal); E78.00 Pure hypercholesterolemia, unspecified